=== PATIENT | male | born 1985 | race Caucasian/White ===

== ENCOUNTER 2016-07-30 12:25 | Emergency (ER) | payer MEDICAID, OTHER ==
[~2016-07-30] VITALS: Ht 175.3 cm; Wt 104.0 kg
[2016-07-30 12:28] VITALS: Ht 175.3 cm; Wt 104.0 kg
[2016-07-30] MEDS ORDERED: KETOROLAC 30 MG INJ IM STA (13:40)
--- NOTE | 2016-07-30 13:52 | ERD ---
ER Documentation Chief Complaint Date/Time DATE: 07/30/16 TIME: 13:49 Chief Complaint LOW BACK PAIN HPI 30-year-old male who presents with lumbar back pain. He states that yesterday he was bending over trying to tie his shoe and felt a pulling and cracking sensation in his lumbar back. Registered Dental Assistant Rda used. The patient describes moderate throbbing pain to his lumbar back radiating down both legs. He denies any bowel or bladder incontinence. The pain is worse with rotational movement and when sitting. He denies any weight loss, no past medical history. He states improvement of pain with Tylenol and Motrin. ROS All systems reviewed and are negative except as per history of present illness. Allergies Allergies: Coded Allergies: No Known Allergy (Unverified , 07/30/16) PMhx/Soc Medical and Surgical Hx: pt denies Medical Hx, pt denies Surgical Hx Hx Alcohol Use: No Hx Substance Use: No Hx Tobacco Use: No Smoking Status: Never smoker FmHx Family History: No diabetes Physical Exam Vitals Vital Signs Date Time Temp Pulse Resp B/P Pulse Ox O2 Delivery O2 Flow Rate FiO2 07/30/16 12:28 98.0 84 18 152/89 98 Physical Exam General: Well developed, well nourished, no acute distress Head: Normocephalic, atraumatic. Eyes: EOM intact ENT: Moist mucous membranes Neck: Full ROM Respiratory: No respiratory distress Cardiovascular: Good capillary refil Abdominal: Nondistended : Deferred MSK: No edema, no unilateral swelling, 5/5 strength, no midline tenderness deformities or step-offs to the thoracolumbar spine, reproducible soft tissue paraspinal tenderness to lumbar back, intact reflexes, steady gait 5 out of 5 strength to bilateral lower extremities Neurologic: Alert and oriented, moving all extremities, normal speech, steady gait Skin: No rash Psych: Normal mood Results 24 hrs Current Medications Medications (Trade) Dose Ordered Sig/Lalo Route PRN Reason Start Time Stop Time Status Last Admin Dose Admin Ketorolac Tromethamine (Toradol) 30 mg ONCE STAT IM 07/30/16 13:40 07/30/16 13:43 DC Procedures/MDM EKG, MONITORS, & DIAGNOSTIC IMAGING: X-ray lumbar spine: Radiologist read IMPRESSION: Mild dextroscoliosis Otherwise unremarkable examination RPTAT: [facility] MEDICAL DECISION MAKING: The patient presents with lumbar back pain after bending over. This is very consistent with acute lumbar strain. Consider possible lumbar radiculopathy however the patient does not have signs or symptoms concerning for cauda equina or cord compression. The patient's low back pain is unlikely related to serious etiology. The patient exhibits no clinical signs or symptoms and has no history or risk factors to suggest cauda equina, cord compression, epidural abscess, epidural hematoma, acute aortic aneurysm or dissection. I do not feel that the patient requires x-ray imaging given patient's age, I believe the risks outweigh the benefits however the patient is persistent and is requesting x-ray imaging. He feels that because he heard a popping sensation there may be a fracture. I advised him that the likelihood of a fracture given no significant trauma and only bending over is extremely unlikely. However the patient would like x-ray imaging. An x-ray of the lumbar spine has been ordered. No evidence of pelvic fracture or sacral fracture. ER COURSE: The patient was given Toradol. X-ray imaging is negative. I discussed range of motion exercises, stretching, NSAIDs warm compresses. The patient may benefit from outpatient MRI imaging or physical rehab therapy if symptoms do not improve within 1 week. I kept the patient and/or family informed of laboratory and diagnostic imaging results throughout the emergency room course. DISPOSITION PLAN: We discussed follow up with the patient's primary care doctor within 24 to 48 hours as needed. We also discussed return to the emergency room for worsening symptoms or worsening condition. Discharge Medications: Motrin, Valium Departure Diagnosis: Primary Impression: Lumbar strain Encounter type: initial encounter Qualified Code: S39.012A - Lumbar strain, initial encounter Condition: Stable ABDIRAHMAN ROSS MD Jul 30, 2016 13:52
--- NOTE | 2016-07-30 14:08 | RADRPT ---
PROCEDURE: XR Lumbar Spine. CLINICAL INDICATION: Back pain TECHNIQUE: Five views of the lumbar spine are available for review COMPARISON: None available FINDINGS: There is a mild dextroscoliosis. There is normal mineralization, architecture alignment. No fracture or osseous lesion is identified . There is no evidence of subluxation. The disk spaces are unremarkable. The facet joints are unr emarkable. The soft tissues are normal. IMPRESSION: Mild dextroscoliosis Otherwise unremarkable examination RPTAT: [facility] .Blanco Gore MD, MD Date Time Electronically viewed and signed by .Blanco Gore MD, on 07/30/2016 14:08 .B/
[2016-07-30] MEDS ORDERED: DIAZ-90 PO (14:12)
[2016-07-30] MEDS ORDERED: IBUP800T25 PO (14:12)
== END 2016-07-30 14:42 | disposition home or self-care (01) ==
LOC: FTE 12:25
DX: S39.012A Strain of muscle, fascia and tendon of lower back, initial encounter (principal); X50.1XXA Overexertion from prolonged static or awkward postures, initial encounter; Y92.9 Unspecified place or not applicable
CPT/HCPCS: 72110; 96372; J1885; Z7502